=== PATIENT | male | born 1965 ===

== ENCOUNTER 2018-07-22 07:13 | Day surgery (SDC) | payer BC ==
[2018-07-21 08:57] VITALS: BMI 23.5
[2018-07-22 07:48] VITALS: TEMP 98; O2SAT 100
[2018-07-22] MEDS ORDERED: Propofol 10 mg/ml Inj (20 ML) ONE (09:43)
[2018-07-22] MEDS ORDERED: Lidocaine Hydrochloride 5 ML INJ ONE (09:43)
[2018-07-22] MEDS: Lactated Ringer's 500 ML IV ONE (10:00)
[2018-07-22 10:15] VITALS: PULSE 65; RESP 13
[2018-07-22 10:55] VITALS: BP 129/67
== END 2018-07-22 11:17 | disposition home or self-care (01) ==
LOC: C.ENDO 07:13
PROVIDERS: ATTEND Internal Medicine Gastroenterology
DX: K29.50 Unspecified chronic gastritis without bleeding (principal); K21.0 Gastro-esophageal reflux disease with esophagitis; K44.9 Diaphragmatic hernia without obstruction or gangrene
CPT/HCPCS: 43239; 88305; 88312; 88313; 88342; J2704; J7120